=== PATIENT | female | born 1980 | race Caucasian/White ===

== ENCOUNTER → 2017-12-14 | Outpatient (CLI) | payer BC | LOC: FIMAGING 09:25 | PROVIDERS: ATTEND Obstetrics & Gynecology | DX: O09.521 Supervision of elderly multigravida, first trimester (principal); O36.8310 Maternal care for abnormalities of the fetal heart rate or rhythm, first trimester, not applicable or unspecified; Z3A.12 12 weeks gestation of pregnancy; Z87.898 Personal history of other specified conditions ==

== ENCOUNTER → 2018-01-26 | Outpatient (CLI) | payer BC | LOC: FIMAGING 14:29 | PROVIDERS: ATTEND Obstetrics & Gynecology | DX: O36.8920 Maternal care for other specified fetal problems, second trimester, not applicable or unspecified (principal); Z3A.18 18 weeks gestation of pregnancy ==

== ENCOUNTER → 2018-02-11 | Outpatient (CLI) | payer BC | LOC: FIMAGING 09:07 | PROVIDERS: ATTEND Obstetrics & Gynecology | DX: O09.522 Supervision of elderly multigravida, second trimester (principal); O09.292 Supervision of pregnancy with other poor reproductive or obstetric history, second trimester; Z3A.20 20 weeks gestation of pregnancy ==

== ENCOUNTER → 2018-03-09 | Outpatient (CLI) | payer BC | LOC: FIMAGING 09:55 | PROVIDERS: ATTEND Obstetrics & Gynecology | DX: Z36.89 Encounter for other specified antenatal screening (principal); O09.292 Supervision of pregnancy with other poor reproductive or obstetric history, second trimester; O09.522 Supervision of elderly multigravida, second trimester; Z3A.22 22 weeks gestation of pregnancy; O34.219 Maternal care for unspecified type scar from previous cesarean delivery ==

== ENCOUNTER → 2018-03-25 | Outpatient (CLI) | payer BC | LOC: FIMAGING 11:36 | PROVIDERS: ATTEND Obstetrics & Gynecology | DX: O09.522 Supervision of elderly multigravida, second trimester (principal); O09.292 Supervision of pregnancy with other poor reproductive or obstetric history, second trimester; Z3A.26 26 weeks gestation of pregnancy ==

== ENCOUNTER → 2018-04-06 | Outpatient (CLI) | payer BC | LOC: FIMAGING 13:42 | PROVIDERS: ATTEND Obstetrics & Gynecology | DX: O09.522 Supervision of elderly multigravida, second trimester (principal); Z3A.28 28 weeks gestation of pregnancy ==

== ENCOUNTER → 2018-04-19 | Outpatient (CLI) | payer BC | LOC: FIMAGING 09:17 | PROVIDERS: ATTEND Obstetrics & Gynecology | DX: O09.523 Supervision of elderly multigravida, third trimester (principal); Z3A.30 30 weeks gestation of pregnancy ==

== ENCOUNTER → 2018-05-06 | Outpatient (CLI) | payer BC | LOC: FIMAGING 12:44 | PROVIDERS: ATTEND Obstetrics & Gynecology | DX: O09.523 Supervision of elderly multigravida, third trimester (principal); O36.5930 Maternal care for other known or suspected poor fetal growth, third trimester, not applicable or unspecified; Z3A.32 32 weeks gestation of pregnancy ==

== ENCOUNTER → 2018-05-18 | Outpatient (CLI) | payer BC | LOC: FIMAGING 14:40 | PROVIDERS: ATTEND Obstetrics & Gynecology | DX: O09.523 Supervision of elderly multigravida, third trimester (principal); Z3A.34 34 weeks gestation of pregnancy ==

== ENCOUNTER → 2018-06-03 | Outpatient (CLI) | payer BC | LOC: FIMAGING 08:39 | PROVIDERS: ATTEND Obstetrics & Gynecology | DX: O09.523 Supervision of elderly multigravida, third trimester (principal); Z3A.36 36 weeks gestation of pregnancy ==